=== PATIENT | male | born 2000 | race Two or more races ===

== ENCOUNTER → 2024-12-01 | Outpatient (CLI) | payer OTHER, SELFPAY ==
--- NOTE | 2024-12-01 | XR_ITS ---
Examination: Knee, left , 3 views Technique: Knee AP, lateral, oblique 3 views Date and time of exam: December 01, 2024 1201 hours INDICATIONS: Injury to the knee 2 days ago, knee pain. FINDINGS: Mild tricompartment osteoarthritis. No fracture or dislocation IMPRESSION: No fracture or dislocation
--- NOTE | 2024-12-01 | XR_ITS ---
EXAMINATION: Ankle, left 3 views . Technique: Ankle AP, oblique, lateral 3 views Date and time of exam: December 01, 2024 1201 hours INDICATIONS: Injured the ankle 2 days ago, ankle pain. FINDINGS: No fracture or dislocation. No foreign body IMPRESSION: No fracture or dislocation
--- NOTE | 2024-12-01 | XR_ITS ---
Examination: Foot, left, 3 views Technique: AP, oblique, lateral views foot, 3 views Date and time of exam: December 01, 2024 1201 hours INDICATIONS: Injury to the foot 2 days ago, foot pain. FINDINGS: No acute fracture. No dislocation No foreign body IMPRESSION: No acute fracture.
== END | disposition home or self-care (01) ==
PROVIDERS: Referring Provider Nurse Practitioner Family; Visit Provider Family Medicine
DX: S80.02XA Contusion of left knee, initial encounter (principal); S93.402A Sprain of unspecified ligament of left ankle, initial encounter; S99.922A Unspecified injury of left foot, initial encounter; X58.XXXA Exposure to other specified factors, initial encounter
CPT/HCPCS: 73562; 73610; 73630